=== PATIENT | female | born 1975 | race Two or more races ===

== ENCOUNTER 2018-09-01 19:59 | Emergency (ER) | payer SELFPAY ==
[~2018-09-01] VITALS: Ht 165.1 cm; Wt 63.5 kg
[2018-09-01 23:57] VITALS: BP 110/70
[2018-09-02] MEDS ORDERED: BACITRACIN TOP OINT 1 UD PKG TOP ONE (00:15)
[2018-09-02] MEDS ORDERED: LIDOCAINE 1% HCL (LOCAL ANESTH.) INJ 20ML MDV IJ ONE (00:15)
[2018-09-02] MEDS ORDERED: TETANUS-DIPTH-ACEL PERTUSSIS 0.5ML SYRG IM ONE (00:15)
== END 2018-09-02 00:59 | disposition home or self-care (01) ==
LOC: ER 20:05
DX: S61.412A Laceration without foreign body of left hand, initial encounter (principal); E11.9 Type 2 diabetes mellitus without complications; W26.0XXA Contact with knife, initial encounter; Y93.89 Activity, other specified; Y99.8 Other external cause status; Y92.89 Other specified places as the place of occurrence of the external cause
CPT/HCPCS: 12001; 90471; 90715; 99283; J2001

== ENCOUNTER 2018-09-14 11:09 | Emergency (ER) | payer SELFPAY ==
[~2018-09-14] VITALS: Ht 162.6 cm; Wt 63.5 kg
[2018-09-14 11:19] VITALS: BP 125/75
== END 2018-09-14 12:40 | disposition home or self-care (01) ==
LOC: ER 11:10
DX: S61.412D Laceration without foreign body of left hand, subsequent encounter (principal); E11.9 Type 2 diabetes mellitus without complications; X58.XXXD Exposure to other specified factors, subsequent encounter

== ENCOUNTER 2021-10-05 12:55 | Emergency (ER) | payer MEDICAID ==
[~2021-10-05] VITALS: Ht 175.3 cm; Wt 63.4 kg
[2021-10-05 13:43] VITALS: BP 131/74
[2021-10-05] MEDS ORDERED: HYDR-4902 PO (14:03)
== END 2021-10-05 14:19 | disposition home or self-care (01) ==
LOC: ER 12:55
DX: G51.0 Bell's palsy (principal); E11.9 Type 2 diabetes mellitus without complications; Z98.890 Other specified postprocedural states
CPT/HCPCS: 93005

== ENCOUNTER 2022-05-02 13:03 | Emergency (ER) | payer MEDICAID ==
[~2022-05-02] VITALS: Ht 157.5 cm; Wt 64.1 kg
[~2022-05-02 13:03] MED LIST: HYDR-4902 PO
[2022-05-02 13:32] VITALS: BP 128/73
[2022-05-02 14:10] LABS: Basophils # (auto) 0 10 ^3/uL (0-0.2); Basophils % (auto) 0.9 % (0.0-2.0); Eosinophils # (auto) 0.1 10 ^3/uL (0-0.8); Eosinophils % (auto) 1.6 % (0.0-7.0); Hematocrit 35.5 % (36.0-46.0); Hemoglobin 11.9 g/dL (12.2-16.2); Lymphocytes # (auto) 1.6 10 ^3/uL (0.4-5.4); Lymphocytes % (auto) 34.7 % (10.0-50.0); Mean Corpuscular Hemoglobin 28.5 pg (28.0-32.0); Mean Corpuscular Hgb Conc. 33.6 g/dL (32.0-36.0); Monocytes # (auto) 0.3 10 ^3/uL (0-1.3); Neutrophils # (auto) 2.6 10 ^3/uL (1.6-8.6); Neutrophils % (auto) 55.8 % (37.0-80.0); Nucleated Red Blood Cells % 0.1 %; Red Blood Cells 4.17 10^6/uL (4.0-5.20); Red Cell Distribution Width 13.9 % (11.8-14.3); White Blood Cell 4.6 10^3/uL (4.4-10.8)
[2022-05-02 14:30] LABS: Albumin 3.7 g/dL (3.4-5.0); Calcium 8.7 mg/dL (8.5-10.1); Magnesium 1.8 mg/dL (1.6-2.6)
[2022-05-02 14:34] LABS: Bilirubin, Total 0.4 mg/dL (0.2-1.0); Total Protein 6.9 g/dL (6.4-8.2)
[2022-05-02] MEDS ORDERED: LIDOCAINE VISCOUS 2% 15ML UD PO ONE (16:45)
[2022-05-02] MEDS ORDERED: DONNATAL 5ml ORAL Elix (BELLADONNA ALK-PHENOBARB) PO ONE (16:45)
[2022-05-02] MEDS ORDERED: MAALOX PLUS or MAALOX 30 ML PO ONE (16:45)
[2022-05-02] MEDS ORDERED: ONDANSETRON ODT 4 MG TAB PO ONE (16:45)
[2022-05-02 17:09] LABS: Urine WBC None Seen /hpf (0 - 5)
[2022-05-02 17:16] LABS: Urine Bacteria NONE SEEN /hpf (None Seen); Urine Blood Negative /uL (Negative); Urine Specific Gravity 1.008 (1.001-1.035)
[2022-05-02] MEDS ORDERED: ONDA-144 PO (18:05)
[2022-05-02] MEDS ORDERED: OMEP20TA PO (18:05)
== END 2022-05-02 19:38 | disposition home or self-care (01) ==
LOC: ER 13:03
DX: E11.65 Type 2 diabetes mellitus with hyperglycemia (principal); R10.13 Epigastric pain; R10.2 Pelvic and perineal pain; E78.5 Hyperlipidemia, unspecified; Z79.899 Other long term (current) drug therapy
CPT/HCPCS: 36415; 80053; 81001; 82962; 83690; 83735; 84702; 85025; Q0162